=== PATIENT | female | born 1965 | race Caucasian/White ===

== ENCOUNTER 2016-10-30 02:06 | Emergency (ER) | payer OTHER ==
[~2016-10-30] VITALS: Ht 160 cm; Wt 70.9 kg
[~2016-10-30 02:06] MED LIST: ALBUTEROL SULF8.5 GM IH; ALBUTEROL17 GM IH; AMITRIPTYLINE H25 MG PO; AMITRIPTYLINE H50 MG PO; AMOXICILLIN875 MG PO; ASPIR-LOW81 MG PO; ASPIRIN81 M1 PO; ATORVASTATIN CA20 MG PO; Aspirin E.C. PO; BACLOFEN10 MG PO; CEFDINIR300 MG PO; CEFTIN500 MG PO; CIPRO500 MG PO; CITALOPRAM HBR10 MG PO; CLARITIN,ALAVAR10 MG PO; CLARITIN10 MG PO; CYCLOBENZAPRINE5 MG PO; DECADRON4 MG PO; DESYREL 150 MG150 MG PO; DICLOFENAC SODI75 MG; DICLOFENAC SODI75 MG PO; Dilaudid PO; ELAVIL50 MG PO; ESCITALOPRAM OX10 MG PO; ESCITALOPRAM OX20 MG PO; ESZOPICLONE3 MG PO; FEOSOL325 MG PO; FEROSUL325 MG PO; FERROUS SULFAT325 MG PO; FIORICET WI1 CAPSULE PO; FIORICET,ESG1 TABLET PO; FLEXERIL10 MG PO; FLOVENT 11120 INHALA IH; FOLIC ACID0.8 MG PO; FOLVITE1 M1 PO; GABAPENTIN400 MG PO; GABAPENTIN600 MG PO; HYDROCODON-ACE1 EAC7 PO; HYDROXYZINE HCL25 MG PO; IBUPROFEN600 MG PO; IMITREX100 MG PO; IRON325 M1 PO; IRON325 MG PO; KEFLEX500 MG PO; KEPPRA1000 MG PO; KEPPRA500 MG PO; KEPPRA750 MG PO; KLONOPIN0.5 M1 PO; Keppra PO; LAMICTAL150 M1 PO; LAMICTAL200 MG PO; LAMOTRIGINE150 MG PO; LEVAQUIN750 MG PO; LEVETIRACETAM500 MG PO; LEXAPRO10 MG PO; LIDOCAINE700 MG TD; LIDODERM 5% P1 PATCH TD; LO-DOSE ASPIRIN81 M2 PO; LODINE200 MG PO; LUNESTA3 MG PO; LaMICtal PO; Levaquin PO; MACROBID100 MG PO; MEDROL DOSEPAK4 MG PO; MELOXICAM15 MG PO; METAXALONE800 MG PO; MOBIC7.5 MG PO; MOTRIN600 MG PO; MOTRIN800 MG PO; MUCINEX600 MG PO; MUCUS RELIEF600 MG PO; Motrin PO; NAPHCON-A EYE D15 ML BOTH EYES; NAPROSYN500 MG PO; NEURONTIN400 MG PO; NEURONTIN600 MG PO; Neurontin PO; OMEPRAZOLE20 MG; OMEPRAZOLE20 MG PO; OMEPRAZOLE40 M1 PO; PAXIL10 MG PO; PAXIL20 MG PO; PERCOCET 5/31 TABLET PO; PHENERGAN W/ COD1 ML PO; PREDNISONE10 MG PO; PREDNISONE20 MG PO; PREDNISONE50 MG PO; PROAIR HFA8.5 GM IH; PROVENTIL,2.5 MG/3 M IH; PROZAC20 MG PO; Protonix PO; RENALPREN SOFTGE1 MG PO; ROBITUSSIN NIG118 ML PO; SAVELLA50 MG PO; SENEXON-S TABL1 EACH PO; SENOKOT,SENN1 TABLE1 PO; SERTRALINE HCL100 MG PO; SKELAXIN400 M1 PO; TESSALON PERLE100 MG PO; TOPAMAX100 MG PO; TOPAMAX200 MG PO; TOPIRAMATE100 MG PO; TOPIRAMATE50 MG PO; TRAMADOL HCL50 MG PO; TRAZODONE HCL150 MG PO; TYLENOL EXTRA500 MG PO; ULTRAM50 MG PO; VENTOLIN HFA18 GM IH; VICODIN 5-3001 EACH PO; VITAMIN D-32000 UNI2 PO; Vicodin,Norco 5/325 PO; ZOFRAN4 MG PO; ZOLOFT100 MG PO; ZOLOFT50 MG PO; ZYRTEC10 M3 PO; celeXA PO
[2016-10-30 02:59] LABS: HEMATOCRIT 38.4 % (36.0-46.0); MCH 27.6 PG (29.0-34.0); MCHC 33.3 G/DL (30.0-36.0); MCV 82.9 FL (83-99); MEAN PLAT.VOLUME 9.8 uM^3 (9.5-12.4); PLATELET COUNT 342 K/uL (156-360); RBC DIS.WIDTH-CV 14.8 % (11.8-14.6); RBC DIS.WIDTH-SD 44.4 % (39-53); RED BLOOD COUNT 4.63 M/uL (3.80-5.20); WHITE BLOOD COUNT 11.7 K/uL (4.1-10.2)
[2016-10-30 03:10] LABS: CHLORIDE 103 mEq/L (99-109); POTASSIUM 3.9 mEq/L (3.7-5.4); SODIUM 137 mEq/L (136-147)
[2016-10-30 03:11] LABS: GLUCOSE 125 mg/dL (70-99)
[2016-10-30 03:13] LABS: ANION GAP 9 MEQ/L (2-14)
[2016-10-30 03:15] LABS: GFR ESTIMATE (CALCULATED) > 59 mL/min/
[2016-10-30 03:16] LABS: UREA NITROGEN (BUN) 17 mg/dL (9-23)
[2016-10-30 05:41] LABS: ALKALINE PHOSPHATASE 69 IU/L (3-129); DIRECT BILIRUBIN 0.1 mg/dL (0.0-0.3); PHENOBARBITAL < 5.0 MCG/ML (15-40); TOTAL BILIRUBIN 0.3 MG/DL (0.0-1.0)
[2016-10-30 05:59] LABS: ADD MIUA? YES; BILIRUBIN NEGATIVE; BLOOD MODERATE; COLOR YELLOW ((YELLOW)); GLUCOSE (STRIP) NEGATIVE; KETONES NEGATIVE; LEUKOCYTES SMALL; NITRITE NEGATIVE; PH, URINE 7.5 (5-8); PROTEIN (STRIP) NEGATIVE; UROBILINOGEN 0.2 MG/DL (0.2-1.0)
[2016-10-30 06:00] LABS: LIPASE 29 U/L (1.0-51.0)
[2016-10-30] MEDS ORDERED: IMODIUM A-D2 M2 PO (06:03)
[2016-10-30] MEDS ORDERED: ZOFRAN8 MG PO (06:03)
[2016-10-30 06:23] LABS: CASTS NONE SEEN /LPF; EPITHELIAL CELLS 2+; MUCUS NONE SEEN
[2016-10-30 06:25] LABS: BACTERIA 3+; CRYSTALS NONE SEEN; RED BLOOD CELLS 0-5 /HPF (0-5); UCUL ADDED? NO; WHITE BLOOD CELLS 0-5 /HPF (0-5)
[2016-10-30 06:37] LABS: SPECIFIC GRAVITY 1.084 (1.000-1.030)
[2016-10-30 06:45] VITALS: BP 137/88
== END 2016-10-30 06:49 | disposition home or self-care (01) ==
LOC: EME 02:06
DX: E86.0 Dehydration (principal); R55 Syncope and collapse; K52.9 Noninfective gastroenteritis and colitis, unspecified; R56.9 Unspecified convulsions; J44.9 Chronic obstructive pulmonary disease, unspecified; K21.9 Gastro-esophageal reflux disease without esophagitis; G43.909 Migraine, unspecified, not intractable, without status migrainosus; Z87.442 Personal history of urinary calculi
CPT/HCPCS: 74177; 80048; 80076; 80156; 80184; 80185; 81003; 83690; 85027; 99281; 99284; J1885; J2270; J2405; J7030

== ENCOUNTER 2016-11-02 10:23 | Emergency (ER) | payer OTHER ==
[~2016-11-02] VITALS: Ht 160 cm; Wt 70.8 kg
[~2016-11-02 10:23] MED LIST changes: +IMODIUM A-D2 M2 PO; +ZOFRAN8 MG PO
[2016-11-02 13:51] VITALS: BP 138/80
== END 2016-11-02 13:53 | disposition home or self-care (01) ==
LOC: EME 10:23
DX: S09.90XA Unspecified injury of head, initial encounter (principal); R51 Headache; M54.2 Cervicalgia; Z91.040 Latex allergy status; Z88.6 Allergy status to analgesic agent; W01.198A Fall on same level from slipping, tripping and stumbling with subsequent striking against other object, initial encounter
CPT/HCPCS: 70450; 72125; 99281; 99284; J0780; J1200; J1885

== ENCOUNTER 2017-02-13 10:46 | Inpatient (IN) | payer OTHER ==
[~2017-02-13] VITALS: Ht 160 cm; Wt 72.6 kg
[2017-02-13 15:11] LABS: EOSINOPHIL (%) 0 % (0-5); HEMATOCRIT 39.9 % (36.0-46.0); IMMATURE GRANULOCYTE (%) 0.5 % (0.0-0.7); INSTRUMENT ABS NEUTROPHIL CT 7.8 K/uL; LYMPHOCYTE COUNT 0.5 K/uL (1.0-2.8); MCH 26.8 PG (29.0-34.0); MCHC 31.8 G/DL (30.0-36.0); MCV 84.4 FL (83-99); MEAN PLAT.VOLUME 9.5 uM^3 (9.5-12.4); MONOCYTE COUNT 0.1 K/uL (0-0.8); NEUTROPHIL (%) 92.1 % (45-76); NEUTROPHIL COUNT 7.8 K/uL (1.8-6.4); PLATELET COUNT 288 K/uL (156-360); RBC DIS.WIDTH-SD 46.2 % (39-53); RED BLOOD COUNT 4.73 M/uL (3.80-5.20); WHITE BLOOD COUNT 8.4 K/uL (4.1-10.2)
[2017-02-13] MEDS ORDERED: NEURONTIN600 MG PO (15:13)
[2017-02-13] MEDS ORDERED: ADVAIR 250/501 DISK IH (15:17)
[2017-02-13 15:19] LABS: CHLORIDE 104 mEq/L (99-109); POTASSIUM 2.6 mEq/L (3.7-5.4); SODIUM 139 mEq/L (136-147)
[2017-02-13 15:20] LABS: GLUCOSE 266 mg/dL (70-99)
[2017-02-13 15:22] LABS: ANION GAP 16 MEQ/L (2-14)
[2017-02-13 15:24] LABS: GFR ESTIMATE (CALCULATED) 51 mL/min/
[2017-02-13 15:25] LABS: UREA NITROGEN (BUN) 11 mg/dL (9-23)
[2017-02-13 16:51] VITALS: BP 115/65
[2017-02-13 17:08] LABS: Estimated Average Glucose 123 mg/dL (70-123); HEMOGLOBIN A1c (GLYCOHEMOGLOB) 5.9 % HGB (Below 5.7)
[2017-02-13 19:20] VITALS: BP 131/68
[2017-02-13 19:54] LABS: INFLUENZA A VIRAL ANTIGEN NEGATIVE; INFLUENZA B VIRAL ANTIGEN NEGATIVE
[2017-02-13 22:54] VITALS: BP 113/58
[2017-02-14 03:16] VITALS: BP 120/67
[2017-02-14 06:03] LABS: POINT-OF-CARE METER ID UU13113725
[2017-02-14 08:27] VITALS: BP 159/69
[2017-02-14 08:30] LABS: ANION GAP 10 MEQ/L (2-14); CHLORIDE 105 MEQ/L (99-109); SAMPLE HEMOLYSIS CHECK 0; SAMPLE ICTERIC CHECK 0; SAMPLE LIPEMIA CHECK 0; SODIUM 136 MEQ/L (136-147)
[2017-02-14 08:35] LABS: GFR ESTIMATE (CALCULATED) > 59 mL/min/; GLUCOSE 150 mg/dL (70-99); UREA NITROGEN (BUN) 9 mg/dL (9-23)
[2017-02-14 08:37] LABS: POTASSIUM 4.2 MEQ/L (3.7-5.4)
[2017-02-14 09:11] LABS: MCH 27.1 PG (29.0-34.0); MCHC 32.1 G/DL (30.0-36.0); MCV 84.4 FL (83-99); MEAN PLAT.VOLUME 9.3 uM^3 (9.5-12.4); PLATELET COUNT 317 K/uL (156-360); RBC DIS.WIDTH-CV 15.4 % (11.8-14.6); RBC DIS.WIDTH-SD 47.2 % (39-53); WHITE BLOOD COUNT 16.3 K/uL (4.1-10.2)
[2017-02-14 12:06] VITALS: BP 136/73
[2017-02-14 16:53] LABS: POINT-OF-CARE METER ID UU13113725
[2017-02-14 17:06] VITALS: BP 139/80
[2017-02-14 19:31] VITALS: BP 134/7
[2017-02-14 20:34] LABS: TROP-I INTERPRETATION NEGATIVE; TROPONIN-I < 0.01 ng/mL (0.0-0.30)
[2017-02-14 20:58] LABS: POINT-OF-CARE METER ID UU13113725
[2017-02-14 23:03] VITALS: BP 124/60
[2017-02-15 02:55] VITALS: BP 139/70
[2017-02-15 06:33] LABS: HEMATOCRIT 40.6 % (36.0-46.0); MCH 26.5 PG (29.0-34.0); MCHC 30.8 G/DL (30.0-36.0); MCV 86.2 FL (83-99); MEAN PLAT.VOLUME 9.6 uM^3 (9.5-12.4); PLATELET COUNT 354 K/uL (156-360); RBC DIS.WIDTH-CV 15.8 % (11.8-14.6); RBC DIS.WIDTH-SD 49.8 % (39-53); RED BLOOD COUNT 4.71 M/uL (3.80-5.20)
[2017-02-15 06:34] LABS: WHITE BLOOD COUNT 26.2 K/uL (4.1-10.2)
[2017-02-15 06:54] LABS: ANION GAP 11 MEQ/L (2-14); CHLORIDE 103 MEQ/L (99-109); GFR ESTIMATE (CALCULATED) > 59 mL/min/; GLUCOSE 134 mg/dL (70-99); SAMPLE HEMOLYSIS CHECK 0; SAMPLE ICTERIC CHECK 0; SAMPLE LIPEMIA CHECK 0; SODIUM 138 MEQ/L (136-147); UREA NITROGEN (BUN) 15 mg/dL (9-23)
[2017-02-15 06:57] VITALS: BP 141/68
[2017-02-15 09:21] LABS: INTERNAL CONTROL VALID? YES
[2017-02-15 11:04] VITALS: BP 139/70
[2017-02-15 11:28] LABS: POINT-OF-CARE METER ID UU13113725
[2017-02-15 15:05] VITALS: BP 140/72
[2017-02-15 16:26] LABS: POINT-OF-CARE METER ID UU13113725
[2017-02-15 19:19] VITALS: BP 122/71
[2017-02-15 21:00] LABS: POINT-OF-CARE METER ID UU13113725
[2017-02-15 23:30] VITALS: BP 119/65
[2017-02-16 03:59] VITALS: BP 115/71
[2017-02-16 07:08] VITALS: BP 139/67
[2017-02-16 11:05] VITALS: BP 141/66
[2017-02-16 15:15] VITALS: BP 135/65
[2017-02-16 16:31] LABS: POINT-OF-CARE METER ID UU13113725
[2017-02-16 21:00] LABS: POINT-OF-CARE METER ID UU13113725
[2017-02-16 23:01] VITALS: BP 106/51
[2017-02-17 06:44] LABS: EOSINOPHIL (%) 0.1 % (0-5); HEMATOCRIT 39.3 % (36.0-46.0); IMMATURE GRANULOCYTE (%) 1.8 % (0.0-0.7); IMMATURE GRANULOCYTE COUNT 0.2 K/uL; INSTRUMENT ABS NEUTROPHIL CT 8.8 K/uL; LYMPHOCYTE COUNT 3.1 K/uL (1.0-2.8); MCH 26.5 PG (29.0-34.0); MCV 85.4 FL (83-99); MEAN PLAT.VOLUME 9.1 uM^3 (9.5-12.4); MONOCYTE (%) 7.8 % (3-12); NEUTROPHIL (%) 66.6 % (45-76); NEUTROPHIL COUNT 8.8 K/uL (1.8-6.4); PLATELET COUNT 323 K/uL (156-360); RBC DIS.WIDTH-CV 15.9 % (11.8-14.6); RBC DIS.WIDTH-SD 50.5 % (39-53)
[2017-02-17 06:45] LABS: WHITE BLOOD COUNT 13.1 K/uL (4.1-10.2)
[2017-02-17 07:09] LABS: ANION GAP 10 MEQ/L (2-14); CHLORIDE 100 MEQ/L (99-109); GFR ESTIMATE (CALCULATED) > 59 mL/min/; SAMPLE HEMOLYSIS CHECK 0; SAMPLE ICTERIC CHECK 0; SAMPLE LIPEMIA CHECK 0; SODIUM 140 MEQ/L (136-147); UREA NITROGEN (BUN) 17 mg/dL (9-23)
[2017-02-17 07:10] LABS: GLUCOSE 92 mg/dL (70-99); POTASSIUM 3.9 MEQ/L (3.7-5.4)
[2017-02-17 08:28] VITALS: BP 131/76
[2017-02-17 15:27] LABS: ADD MIUA? YES; BILIRUBIN NEGATIVE; BLOOD SMALL; COLOR YELLOW ((YELLOW)); GLUCOSE (STRIP) NEGATIVE; KETONES NEGATIVE; LEUKOCYTES NEGATIVE; NITRITE NEGATIVE; PROTEIN (STRIP) NEGATIVE; SPECIFIC GRAVITY 1.025 (1.000-1.030); UROBILINOGEN 0.2 MG/DL (0.2-1.0)
[2017-02-17 15:48] LABS: BACTERIA NONE SEEN /HPF; EPITHELIAL CELLS RARE /HPF; MUCUS TRACE /LPF; RED BLOOD CELLS 0-5 /HPF (0-5); UCUL ADDED? NO; WHITE BLOOD CELLS 0-5 /HPF (0-5)
[2017-02-17 16:43] LABS: POINT-OF-CARE METER ID UU13113725
[2017-02-17 17:03] VITALS: BP 134/69
[2017-02-18 00:12] VITALS: BP 129/83
[2017-02-18 06:48] VITALS: BP 146/71
[2017-02-18 07:07] LABS: BASOPHIL COUNT 0.1 K/uL (0-0.1); EOSINOPHIL (%) 0.3 % (0-5); EOSINOPHIL COUNT 0.1 K/uL (0-0.3); HEMATOCRIT 40.1 % (36.0-46.0); IMMATURE GRANULOCYTE (%) 4.1 % (0.0-0.7); IMMATURE GRANULOCYTE COUNT 0.6 K/uL; INSTRUMENT ABS NEUTROPHIL CT 9.1 K/uL; LYMPHOCYTE COUNT 3.5 K/uL (1.0-2.8); MCH 26.8 PG (29.0-34.0); MCHC 31.2 G/DL (30.0-36.0); MCV 86.1 FL (83-99); MEAN PLAT.VOLUME 9.2 uM^3 (9.5-12.4); MONOCYTE (%) 8.9 % (3-12); MONOCYTE COUNT 1.3 K/uL (0-0.8); NEUTROPHIL (%) 62.5 % (45-76); NEUTROPHIL COUNT 9.1 K/uL (1.8-6.4); PLATELET COUNT 324 K/uL (156-360); RBC DIS.WIDTH-CV 15.9 % (11.8-14.6); RBC DIS.WIDTH-SD 50.2 % (39-53); RED BLOOD COUNT 4.66 M/uL (3.80-5.20); WHITE BLOOD COUNT 14.6 K/uL (4.1-10.2)
[2017-02-18 07:25] LABS: ANION GAP 9 MEQ/L (2-14); CHLORIDE 100 MEQ/L (99-109); GFR ESTIMATE (CALCULATED) > 59 mL/min/; GLUCOSE 113 mg/dL (70-99); SAMPLE HEMOLYSIS CHECK 0; SAMPLE ICTERIC CHECK 0; SAMPLE LIPEMIA CHECK 0; SODIUM 139 MEQ/L (136-147); UREA NITROGEN (BUN) 21 mg/dL (9-23)
[2017-02-18 11:50] LABS: POINT-OF-CARE METER ID UU13113725
[2017-02-18 15:30] VITALS: BP 131/78
[2017-02-18 15:44] LABS: POINT-OF-CARE METER ID UU13113725
[2017-02-18 21:34] LABS: POINT-OF-CARE METER ID UU13113725
[2017-02-18 22:46] VITALS: BP 131/84
[2017-02-19 05:27] LABS: BASOPHIL COUNT 0.1 K/uL (0-0.1); EOSINOPHIL (%) 0.1 % (0-5); HEMATOCRIT 41.1 % (36.0-46.0); IMMATURE GRANULOCYTE (%) 2.5 % (0.0-0.7); IMMATURE GRANULOCYTE COUNT 0.5 K/uL; INSTRUMENT ABS NEUTROPHIL CT 14.4 K/uL; LYMPHOCYTE COUNT 3.1 K/uL (1.0-2.8); MCH 27.6 PG (29.0-34.0); MCHC 32.1 G/DL (30.0-36.0); MCV 85.8 FL (83-99); MEAN PLAT.VOLUME 9.6 uM^3 (9.5-12.4); MONOCYTE COUNT 1.6 K/uL (0-0.8); NEUTROPHIL (%) 73.5 % (45-76); NEUTROPHIL COUNT 14.4 K/uL (1.8-6.4); PLATELET COUNT 323 K/uL (156-360); RBC DIS.WIDTH-CV 15.9 % (11.8-14.6); RBC DIS.WIDTH-SD 49.8 % (39-53); RED BLOOD COUNT 4.79 M/uL (3.80-5.20); WHITE BLOOD COUNT 19.6 K/uL (4.1-10.2)
[2017-02-19 06:58] VITALS: BP 137/81
[2017-02-19] MEDS ORDERED: PROVENTIL,2.5 MG/3 M IH (12:01)
[2017-02-19] MEDS ORDERED: PREDNISONE20 MG PO (12:01)
[2017-02-19] MEDS ORDERED: LAMOTRIGINE150 MG PO (12:01)
[2017-02-19 15:00] VITALS: BP 142/82
[2017-02-19 17:01] LABS: POINT-OF-CARE METER ID UU13113725
== END 2017-02-19 17:31 | disposition home health service (06) | DRG 202 ==
LOC: EME 10:46 → 5EAST 14:41 → EDOF 14:41 → 5EAST 16:07
PROVIDERS: Emergency Medicine; Hospitalist; Internal Medicine; Nurse Practitioner Family
DX: J45.901 Unspecified asthma with (acute) exacerbation (principal); J44.0 Chronic obstructive pulmonary disease with (acute) lower respiratory infection; J20.9 Acute bronchitis, unspecified; J18.9 Pneumonia, unspecified organism; G89.4 Chronic pain syndrome; F32.9 Major depressive disorder, single episode, unspecified; M79.7 Fibromyalgia; K21.9 Gastro-esophageal reflux disease without esophagitis; F41.9 Anxiety disorder, unspecified; G43.909 Migraine, unspecified, not intractable, without status migrainosus; K76.0 Fatty (change of) liver, not elsewhere classified; E87.6 Hypokalemia; R73.9 Hyperglycemia, unspecified; E78.5 Hyperlipidemia, unspecified; G40.909 Epilepsy, unspecified, not intractable, without status epilepticus; Z79.82 Long term (current) use of aspirin
CPT/HCPCS: 71010; 71020; 80048; 81003; 82948; 83036; 84484; 85025; 85027; 87449; 87502; 94640; 94640 76; 94644; 94760; 94799; 95819; 99202; 99281; 99285; J0696; J1100; J1110; J1650; J1815; J2270; J2405; J2920; J2930; J7040; J7050; J7512

== ENCOUNTER 2017-05-03 11:53 | Emergency (ER) | payer OTHER ==
[~2017-05-03] VITALS: Ht 160 cm; Wt 70.9 kg
[~2017-05-03 11:53] MED LIST changes: +ADVAIR 250/501 DISK IH
[2017-05-03 15:28] LABS: COLOR RED ((YELLOW)); GLUCOSE (STRIP) NEGATIVE; KETONES NEGATIVE; LEUKOCYTES NEGATIVE; NITRITE NEGATIVE; PH, URINE 7.5 (5-8); PROTEIN (STRIP) 100; SPECIFIC GRAVITY 1.015 (1.000-1.030)
[2017-05-03 15:29] LABS: ADD MIUA? YES; BILIRUBIN NEGATIVE; BLOOD LARGE; UROBILINOGEN 0.5 MG/DL (0.2-1.0)
[2017-05-03 15:33] LABS: BACTERIA 1+ /HPF; EPITHELIAL CELLS 2+ /HPF; MUCUS NONE SEEN /LPF; RED BLOOD CELLS TNTC /HPF (0-5); WHITE BLOOD CELLS 0-5 /HPF (0-5)
[2017-05-03] MEDS ORDERED: ZOFRAN4 MG PO (15:47)
[2017-05-03] MEDS ORDERED: FIORICET 50-301 EACH PO (15:47)
[2017-05-03 16:08] VITALS: BP 133/86
== END 2017-05-03 16:08 | disposition home or self-care (01) ==
LOC: EXP 11:53 → EME 11:53 → EXP 16:08
PROVIDERS: Nurse Practitioner Family
DX: G43.909 Migraine, unspecified, not intractable, without status migrainosus (principal); K52.9 Noninfective gastroenteritis and colitis, unspecified; M79.7 Fibromyalgia; K21.9 Gastro-esophageal reflux disease without esophagitis; J44.9 Chronic obstructive pulmonary disease, unspecified; R56.9 Unspecified convulsions; Z87.442 Personal history of urinary calculi; Z79.82 Long term (current) use of aspirin
CPT/HCPCS: 81003; 99281; 99285; J1200; J1885; J2765; J7030

== ENCOUNTER 2017-05-15 10:52 | Emergency (ER) | payer OTHER ==
[~2017-05-15] VITALS: Ht 160 cm; Wt 70.9 kg
[~2017-05-15 10:52] MED LIST changes: +FIORICET 50-301 EACH PO
[2017-05-15 13:00] LABS: HEMATOCRIT 39.3 % (36.0-46.0); MCHC 31.3 G/DL (30.0-36.0); MCV 83.1 FL (83-99); MEAN PLAT.VOLUME 9.3 uM^3 (9.5-12.4); PLATELET COUNT 378 K/uL (156-360); RBC DIS.WIDTH-CV 14.6 % (11.8-14.6); RBC DIS.WIDTH-SD 44.4 % (39-53); RED BLOOD COUNT 4.73 M/uL (3.80-5.20); WHITE BLOOD COUNT 6.7 K/uL (4.1-10.2)
[2017-05-15 13:09] LABS: CHLORIDE 108 mEq/L (99-109); POTASSIUM 3.9 mEq/L (3.7-5.4); SODIUM 141 mEq/L (136-147)
[2017-05-15 13:11] LABS: GLUCOSE 101 mg/dL (70-99)
[2017-05-15 13:12] LABS: ANION GAP 11 MEQ/L (2-14)
[2017-05-15 13:14] LABS: GFR ESTIMATE (CALCULATED) > 59 mL/min/
[2017-05-15 13:15] LABS: UREA NITROGEN (BUN) 16 mg/dL (9-23)
[2017-05-15 13:21] LABS: TROP-I INTERPRETATION NEGATIVE; TROPONIN-I < 0.01 ng/mL (0.0-0.30)
[2017-05-15 15:54] LABS: TROP-I INTERPRETATION NEGATIVE; TROPONIN-I < 0.01 ng/mL (0.0-0.30)
[2017-05-15 18:31] VITALS: BP 128/86
== END 2017-05-15 18:32 | disposition home or self-care (01) ==
LOC: EME 10:52
PROVIDERS: Emergency Medicine
DX: R07.9 Chest pain, unspecified (principal); R11.0 Nausea; J44.9 Chronic obstructive pulmonary disease, unspecified; J45.909 Unspecified asthma, uncomplicated; Z79.82 Long term (current) use of aspirin
CPT/HCPCS: 71020; 80048; 84484; 85027; 93005; 99281; 99285

== ENCOUNTER 2017-05-18 10:21 | Emergency (ER) | payer OTHER ==
[~2017-05-18] VITALS: Ht 160 cm; Wt 72.4 kg
[2017-05-18] MEDS ORDERED: DERMAREST ECZE118 ML TP (10:44)
[2017-05-18] MEDS ORDERED: ATARAX,VISTARIL25 MG PO (10:44)
[2017-05-18 10:54] VITALS: BP 143/84
== END 2017-05-18 10:55 | disposition home or self-care (01) ==
LOC: EME 10:21
DX: R21 Rash and other nonspecific skin eruption (principal); L29.9 Pruritus, unspecified; L53.9 Erythematous condition, unspecified; J45.909 Unspecified asthma, uncomplicated
CPT/HCPCS: 99281; 99283

== ENCOUNTER 2017-09-27 15:33 | Emergency (ER) | payer OTHER ==
[~2017-09-27] VITALS: Ht 160 cm; Wt 69.5 kg
[~2017-09-27 15:33] MED LIST changes: +ATARAX,VISTARIL25 MG PO; +DERMAREST ECZE118 ML TP
[2017-09-27 16:29] LABS: ADD MIUA? YES; BILIRUBIN NEGATIVE; BLOOD MODERATE; COLOR AMBER ((YELLOW)); GLUCOSE (STRIP) NEGATIVE; KETONES NEGATIVE; LEUKOCYTES LARGE; NITRITE POSITIVE; PROTEIN (STRIP) 30; SPECIFIC GRAVITY 1.025 (1.000-1.030)
[2017-09-27 16:34] LABS: HEMATOCRIT 37.4 % (36.0-46.0); MCH 25.9 PG (29.0-34.0); MCHC 32.1 G/DL (30.0-36.0); MCV 80.8 FL (83-99); MEAN PLAT.VOLUME 9.4 uM^3 (9.5-12.4); PLATELET COUNT 363 K/uL (156-360); RBC DIS.WIDTH-CV 18.6 % (11.8-14.6); RBC DIS.WIDTH-SD 54.9 % (39-53); RED BLOOD COUNT 4.63 M/uL (3.80-5.20); WHITE BLOOD COUNT 8.3 K/uL (4.1-10.2)
[2017-09-27 16:51] LABS: BACTERIA 2+ /HPF; EPITHELIAL CELLS 3+ /HPF; MUCUS NONE SEEN /LPF; RED BLOOD CELLS 0-5 /HPF (0-5); WHITE BLOOD CELLS 40-50 /HPF (0-5)
[2017-09-27 17:04] LABS: ANION GAP 11 MEQ/L (2-14); CHLORIDE 106 MEQ/L (99-109); POTASSIUM 3.7 MEQ/L (3.7-5.4); SAMPLE HEMOLYSIS CHECK 0; SAMPLE ICTERIC CHECK 0; SAMPLE LIPEMIA CHECK 0; SODIUM 141 MEQ/L (136-147); TOTAL BILIRUBIN 0.4 MG/DL (0.0-1.0)
[2017-09-27 17:09] LABS: ALKALINE PHOSPHATASE 98 IU/L (3-129); GFR ESTIMATE (CALCULATED) > 59 mL/min/; GLUCOSE 93 mg/dL (70-99); LIPASE 21 U/L (1.0-51.0); UREA NITROGEN (BUN) 13 mg/dL (9-23)
[2017-09-27 17:14] LABS: QUANTITATIVE HCG < 4.0 MIU/ML
[2017-09-27] MEDS ORDERED: MOTRIN800 MG PO (18:23)
[2017-09-27] MEDS ORDERED: KEFLEX500 MG PO (18:23)
[2017-09-27] MEDS ORDERED: ULTRAM50 MG PO (18:23)
[2017-09-27] MEDS ORDERED: ZOFRAN ODT4 MG PO (18:26)
[2017-09-27 18:46] VITALS: BP 135/89
== END 2017-09-27 18:47 | disposition home or self-care (01) ==
LOC: EME 15:33
PROVIDERS: Nurse Practitioner Family
DX: N12 Tubulo-interstitial nephritis, not specified as acute or chronic (principal); N83.201 Unspecified ovarian cyst, right side; Z90.49 Acquired absence of other specified parts of digestive tract; Z87.442 Personal history of urinary calculi; J44.9 Chronic obstructive pulmonary disease, unspecified; Z79.82 Long term (current) use of aspirin
CPT/HCPCS: 74177; 80053; 81003; 83690; 84702; 85027; J0696

== ENCOUNTER 2018-05-13 18:16 | Emergency (ER) | payer OTHER ==
[~2018-05-13] VITALS: Ht 160 cm; Wt 69.5 kg
[~2018-05-13 18:16] MED LIST changes: +ZOFRAN ODT4 MG PO
[2018-05-13] MEDS ORDERED: PYRIDIUM100 MG PO (19:17)
[2018-05-13 19:23] LABS: APPEARANCE CLOUDY ((CLEAR)); BILIRUBIN NEGATIVE; BLOOD SMALL; COLOR YELLOW ((YELLOW)); GLUCOSE (STRIP) NEGATIVE; KETONES NEGATIVE; LEUKOCYTES LARGE; NITRITE NEGATIVE; PROTEIN (STRIP) 30; SPECIFIC GRAVITY 1.023 (1.000-1.030); UROBILINOGEN 0.2 MG/DL (0.2-1.0)
[2018-05-13 19:33] LABS: HEMATOCRIT 27.1 % (36.0-46.0); HEMOGLOBIN 7.9 G/DL (11.9-15.5); MCH 18.1 PG (29.0-34.0); MCHC 29.2 G/DL (30.0-36.0); PLATELET COUNT 445 K/uL (156-360); RBC DIS.WIDTH-CV 18.1 % (11.8-14.6); RBC DIS.WIDTH-SD 39.2 % (39-53); RED BLOOD COUNT 4.37 M/uL (3.80-5.20)
[2018-05-13] MEDS ORDERED: BACTRIM,SEPT1 TABLET PO (19:40)
[2018-05-13 19:50] LABS: ALBUMIN 3.5 G/DL (3.2-4.8); ALKALINE PHOSPHATASE 62 IU/L (3-129); ALT (GPT) 7 IU/L (3-49); AST (GOT) 11 IU/L (2-34); CHLORIDE 105 MEQ/L (99-109); CREATININE 0.9 MG/DL (0.6-1.3); GFR ESTIMATE (CALCULATED) > 59 mL/min/; GLUCOSE 110 mg/dL (70-99); POTASSIUM 4.1 MEQ/L (3.7-5.4); SODIUM 138 MEQ/L (136-147); TOTAL BILIRUBIN 0.3 MG/DL (0.0-1.0); TOTAL PROTEIN 6.8 G/DL (6.4-8.3); UREA NITROGEN (BUN) 13 mg/dL (9-23)
[2018-05-13 19:51] LABS: MUCUS NONE SEEN /LPF; WHITE BLOOD CELLS TNTC /HPF (0-5)
[2018-05-13 19:52] LABS: BACTERIA 3+ /HPF; EPITHELIAL CELLS 4+ /HPF
[2018-05-13 20:30] VITALS: BP 153/83
== END 2018-05-13 20:30 | disposition home or self-care (01) ==
LOC: EME 18:16
PROVIDERS: Nurse Practitioner Family
DX: N39.0 Urinary tract infection, site not specified (principal); R11.0 Nausea; R19.7 Diarrhea, unspecified; J44.9 Chronic obstructive pulmonary disease, unspecified; K21.9 Gastro-esophageal reflux disease without esophagitis; M79.7 Fibromyalgia; F32.9 Major depressive disorder, single episode, unspecified; F41.9 Anxiety disorder, unspecified; F45.9 Somatoform disorder, unspecified; F44.9 Dissociative and conversion disorder, unspecified; Z79.51 Long term (current) use of inhaled steroids; Z79.82 Long term (current) use of aspirin; Z87.440 Personal history of urinary (tract) infections; Z87.442 Personal history of urinary calculi; Z98.890 Other specified postprocedural states; Z90.49 Acquired absence of other specified parts of digestive tract; Z91.040 Latex allergy status; Z88.4 Allergy status to anesthetic agent; Z88.6 Allergy status to analgesic agent
CPT/HCPCS: 80053; 81003; 85027; 99281; 99284